=== PATIENT | male | born 1945 | race Caucasian/White ===

== ENCOUNTER 2021-09-18 16:39 | Emergency (ER) | payer OTHER ==
[~2021-09-18] VITALS: Ht 177.8 cm; Wt 74.8 kg
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
--- NOTE | 2021-09-18 19:12 | NUR ---
REPORT GIVEN TO NURSE RAJAN FOR SABINE
--- NOTE | 2021-09-18 19:58 | NUR ---
Patient discharged to home in stable condition. Written and verbal after care instructions given. Patient verbalizes understanding of instruction.
[2021-09-18 20:40] VITALS: BP 123/81
== END 2021-09-18 20:42 | disposition home or self-care (01) ==
LOC: ER 16:42
DX: S09.8XXA Other specified injuries of head, initial encounter (principal); Z86.73 Personal history of transient ischemic attack (TIA), and cerebral infarction without residual deficits; Z60.2 Problems related to living alone; W18.09XA Striking against other object with subsequent fall, initial encounter; Y93.89 Activity, other specified; Y92.89 Other specified places as the place of occurrence of the external cause; Y99.8 Other external cause status
CPT/HCPCS: 70450-TC